=== PATIENT | male | born 1995 | race Caucasian/White ===

== ENCOUNTER 2021-12-09 14:44 | Emergency (ER) | payer SELFPAY ==
[2021-12-09 14:57] VITALS: BP 170/84; PULSE 77; RESP 18; TEMP 36.9; O2SAT 100
--- NOTE | 2021-12-09 15:01 | DI.RAD.S_ITS ---
PROCEDURE: XR HAND LT MIN 3V INDICATIONS: wound from drill bit, 2nd digit numbness TECHNIQUE: 3 views of the hand(s) acquired. COMPARISON: None. FINDINGS: Bones: No fractures or dislocations. Carpal bones are normally aligned. No suspicious bony lesions. Soft tissues: No suspicious soft tissue calcifications. Metallic foreign body within the soft tissues at the volar aspect of the 5th metacarpal head. IMPRESSION: 1. Soft tissue foreign body as above. 2. No acute fracture. No osseous lesion. If symptoms and/or clinical suspicion for pathology persist, further assessment with repeat, or advanced imaging (e.g., CT, MRI, or bone scan) may be helpful for further assessment. Dictated by: Norbert Navas M.D. on 12/09/2021 at 15:28 Approved by: Norbert Navas M.D. on 12/09/2021 at 15:29
[2021-12-09] MEDS: TET,DIPH,PERTUSS(ACELL),VAC/PF 0.5 ML SYRINGE IM (16:39)
[2021-12-09] MEDS: LIDO 1%/SOD BICARB 8.4% (10ML) 10 ML SYRINGE INJ (16:51)
--- NOTE | 2021-12-09 18:15 | ED_ITS ---
HPI - Wound/Laceration <VICTOR MANUEL Hernandez - Last Filed: 12/09/21 21:04> General Chief Complaint: Wound/Laceration Stated Complaint: Drill bit into left hand today Time Seen by Provider: 12/09/21 16:36 Source: patient Mode of arrival: Ambulatory History of Present Illness HPI narrative: This is a 26-year-old male who was at his house when he accidentally got his left hand with a drill bit just prior to arrival. Patient was concerned when he had tissue coming out of his puncture wound. Patient states that the drill bit is large, approximately 1 cm in diameter and is likely not broken off or in his wound. Patient states that he was drilling metal, he denies knowing when his last tetanus was. He states that he has mild pain, denies any mobility changes or sensation deficit. Bleeding is controlled Patient tetanus UTD: No Related Data Previous Rx's Medication Instructions Recorded mupirocin 2 % topical ointment 1 applic TOPICAL BID 5 Days #15 g 12/09/21 Allergies Allergy/AdvReac Type Severity Reaction Status Date / Time No Known Drug Allergies Allergy Verified 01/23/19 13:34 Review of Systems <VICTOR MANUEL Hernandez - Last Filed: 12/09/21 21:04> Review of Systems Narrative: General: denies fever, chills Head/Neck: denies headache, neck pain Eyes: denies visual changes, eye pain Cardio: denies chest pain, palpitations Respiratory: denies shortness of breath, cough GI: denies abdominal pain, nausea, vomiting, or diarrhea MSK: denies new joint pain, muscle weakness or swelling Skin: denies rash, endorses wound to left palm near his 2nd digit MCP joint Neuro: denies numbness, tingling, dizziness Exam <VICTOR MANUEL Hernandez - Last Filed: 12/09/21 21:04> Narrative Exam Narrative: Independently reviewed vitals signs and nursing notes. General: Awake, alert, nontoxic, no cardiorespiratory distress Head/Neck: Atraumatic, neck supple Eyes: EOMI, conjunctiva normal Nose: nares patent, no rhinorrhea Mouth/Throat: moist mucus membranes, posterior pharynx without erythema or lesion Cardio: Regular rate and rhythm, no peripheral edema Respiratory: respirations unlabored without wheezing, stridor, or rales. No retractions, hypoxia or tachypnea MSK: Moves all extremities, neurovascularly intact, range of motion without deficit, puncture wound to the palmar aspect of his left hand near his 2nd digit MCP joint approximately 10 mm in diameter. It is contaminated with debris and likely metal. This was all irrigated and cleaned out of his wound with chlorhexidine and normal saline. Wound edges were revised, no sutures were placed due to the nature of the contaminated puncture wound to allow for drainage Skin: Normal capillary refill, no rash Neuro: Normal speech and cognition, normal gait Initial Vital Signs Initial Vital Signs: Vital Signs Temperature 98.4 F 12/09/21 14:57 Pulse Rate 77 12/09/21 14:57 Respiratory Rate 18 12/09/21 14:57 Blood Pressure 170/84 H 12/09/21 14:57 Pulse Oximetry 100 12/09/21 14:57 <Leda Shah DO - Last Filed: 12/10/21 07:19> Initial Vital Signs Initial Vital Signs: Vital Signs Temperature 98.4 F 12/09/21 14:57 Pulse Rate 77 12/09/21 14:57 Respiratory Rate 18 12/09/21 14:57 Blood Pressure 170/84 H 12/09/21 14:57 Pulse Oximetry 100 12/09/21 14:57 Course <VICTOR MANUEL Hernandez - Last Filed: 12/09/21 21:04> Orders Ordered: Discontinued Medications Diphtheria/Tetanus/Acell Pertussis (Tet,Diph,Pertuss(Acell),Vac/Pf 0.5 Ml Syringe) 0.5 ml IM .ONCE ONE Stop: 12/09/21 16:22 Last Admin: 12/09/21 16:39 Dose: 0.5 ml Documented by: ANJELICA Lidocaine/Sodium Bicarbonate (Lido 1%/Sod Bicarb 8.4% (10ml) 10 Ml Syringe) 10 ml INJ NOW ONE Stop: 12/09/21 16:37 Last Admin: 12/09/21 16:51 Dose: 10 ml Documented by: ANJELICA Vital Signs Vital signs: Vital Signs - 8 hr 12/09/21 14:57 12/09/21 18:28 Temperature 98.4 F Pulse Rate 77 76 Respiratory Rate 18 16 Blood Pressure 170/84 H 160/80 H Pulse Oximetry 100 99 <Leda Shah DO - Last Filed: 12/10/21 07:19> Orders Ordered: Discontinued Medications Diphtheria/Tetanus/Acell Pertussis (Tet,Diph,Pertuss(Acell),Vac/Pf 0.5 Ml Syringe) 0.5 ml IM .ONCE ONE Stop: 12/09/21 16:22 Last Admin: 12/09/21 16:39 Dose: 0.5 ml Documented by: ANJELICA Lidocaine/Sodium Bicarbonate (Lido 1%/Sod Bicarb 8.4% (10ml) 10 Ml Syringe) 10 ml INJ NOW ONE Stop: 12/09/21 16:37 Last Admin: 12/09/21 16:51 Dose: 10 ml Documented by: LINDATE Vital Signs Vital signs: Vital Signs - 8 hr 12/09/21 14:57 12/09/21 18:28 Temperature 98.4 F Pulse Rate 77 76 Respiratory Rate 18 16 Blood Pressure 170/84 H 160/80 H Pulse Oximetry 100 99 MDM - Wound/Laceration <Soniya Canseco [facility] - Last Filed: 12/09/21 21:04> Imaging Data Extremity x-ray #1: Radiologist's Impression: PROCEDURE:? XR HAND LT MIN 3V ? INDICATIONS:? wound from drill bit, 2nd digit numbness ? TECHNIQUE:? 3 views of the hand(s) acquired.? ? COMPARISON:? None. ? FINDINGS:? ? Bones:? No fractures or dislocations.? Carpal bones are normally aligned.? No suspicious bony lesions.? ? Soft tissues:? No suspicious soft tissue calcifications.? Metallic foreign body within the soft tissues at the volar aspect of the 5th metacarpal head. ? ? IMPRESSION:? 1. Soft tissue foreign body as above. 2. No acute fracture. No osseous lesion. If symptoms and/or clinical suspicion for pathology persist, further assessment with repeat, or advanced imaging (e.g., CT, MRI, or bone scan) may be helpful for further assessment. ? ? Dictated by: Norbert Navas M.D. on 12/09/2021 at 15:28 ? ? Approved by: Norbert Navas M.D. on 12/09/2021 at 15:29 ? [facility] Narrative Medical decision making narrative: This is a pleasant 24-year-old male who presents to the emergency department with a puncture wound to his left palm he sustained while drilling metal and accidentally drilling the palm of his left hand near his 2nd MCP joint. Wound was not deep, approximately 10 mm, approximately 10 mm wide with contamination, hard debris was removed from the wound and this was irrigated with normal saline and chlorhexidine. Wound margins were revised due to tissue coming out of this wound. Tetanus was updated today. and a nonstick dressing was applied to allow for drainage. Patient is instructed to keep his wound covered with a Band-Aid and a hand wrap if he is going back to work. Patient was prescribed topical mupirocin and he declines any need for oral antibiotics. Patient understands to return to the emergency department if he develops any redness or streaking, purulence drainage from his wound, or other signs of infection. Patient is appropriate and amenable to discharge home. Vital signs are stable on repeat examination is unremarkable. Patient has been informed of results. Patient has been given strict return to ER precautions for any new or worsening symptoms. Patient understands to follow up closely with outpatient providers as instructed. Patient understands plan and agrees to discharge home. All questions and concerns answered at this time. Discharge Plan Departure Patient Disposition: Home Clinical Impression: Puncture wound Instructions: DI for Puncture Wound Activity Restrictions/Additional Instructions: *You have been diagnosed with a puncture wound to your hand from a drill bit. Please keep this clean and covered while you are working, try to a not get anything in it. You can apply antibiotic ointment twice a day and change or Band-Aid, you may shower and wash her hands like usual. Please keep it covered with something that will absorb some drainage for a couple of days. Please come back to the emergency department via redness and streaking up her hand, start feeling ill, if you develop swelling to your fingers or other signs of infection. *What to do: *Please continue to take your regular medications as directed. [x ] New medication prescriptions sent to your pharmacy: [[facility]] [ ] New medication written as a paper prescription [ ] No new medications given *Please follow up with your primary care provider in 2-3 days, call for an appointment. Let them know you were seen in the Emergency Department and that we asked that you be seen for follow-up. We will electronically transmit a record of today's note if your PCP is in our system *If you do not have a primary care provider please contact [phone] to establish care with one of the [facility] primary care providers. *Return to Emergency Department if you should have any new, worsening or concerning symptoms, such as [fever greater than 101F, chills, worsening pain, persistent vomiting or other bothersome symptoms] Prescriptions: New mupirocin 2 % ointment 1 applic topical BID 5 Days Qty: 15 0RF <Leda Shah DO - Last Filed: 12/10/21 07:19> Cosign ED Attending Marc Attestation: I was immediately available in the department for consultation. Documentation has been reviewed. I agree with assessment and plan.
[2021-12-09 18:28] VITALS: BP 160/80; PULSE 76; RESP 16; O2SAT 99
== END 2021-12-09 18:28 | disposition home or self-care (01) ==
PROVIDERS: Emergency Provider Nurse Practitioner Critical Care Medicine
DX: S61.432A Puncture wound without foreign body of left hand, initial encounter (principal); W29.8XXA Contact with other powered hand tools and household machinery, initial encounter; Z23 Encounter for immunization
CPT/HCPCS: 73130; 90471; 99283; 90715